=== PATIENT | male | born 1995 | race Caucasian/White ===

== ENCOUNTER 2017-02-04 12:35 | Inpatient (IN) | payer OTHER ==
[2017-02-04] MEDS ORDERED: SODIUM CHLOR 0.9% 1000 ML INJ 1,000 ML IV SCH (12:56)
[2017-02-04 12:57] VITALS: TEMP 98.2; O2SAT 100
[2017-02-04] MEDS ORDERED: HYDROmorphone HCL PF 2 MG/ML VIAL IV PUSH ONE ×2 (13:00→16:30)
[2017-02-04] MEDS ORDERED: SODIUM CHLORIDE 0.9% FLUSH 10 ML FLUSH IVF PRN (13:00)
[2017-02-04] MEDS ORDERED: ONDANSETRON HCL 4 MG/2 ML VIAL IV PUSH ONE (13:00)
[2017-02-04 13:04] VITALS: BP 160/82; PULSE 90; RESP 18; TEMP 98.6; O2SAT 100
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
[2017-02-04 14:42] LABS: AUTOMATED NEUTROPHIL # 18.4 TH/MM3 (1.8-7.7); EOSINOPHIL % 0.1 % (0.0-4.0); HEMATOCRIT 48.2 % (39.0-51.0); HEMOGLOBIN 16.6 GM/DL (13.0-17.0); LYMPH % 5.1 % (9.0-44.0); LYMPHOCYTE # 1.1 TH/MM3 (1.0-4.8); MEAN CELL VOLUME 89.3 FL (80.0-100.0); MEAN CORPUSCULAR HEMOGLOBIN 30.7 PG (27.0-34.0); MEAN CORPUSCULAR HGB CONC 34.4 % (32.0-36.0); MEAN PLATELET VOLUME 9.6 FL (7.0-11.0); MONO % 7.8 % (0.0-8.0); MONOCYTE # 1.7 TH/MM3 (0-0.9); PLATELET COUNT 192 TH/MM3 (150-450); RED CELL DISTRIBUTION WIDTH 12.4 % (11.6-17.2); WHITE BLOOD COUNT 21.2 TH/MM3 (4.0-11.0)
[2017-02-04 14:49] LABS: INTERNATIONAL NORMALIZED RATIO 1.1 RATIO; PROTHROMBIN TIME - PATIENT 11.7 SEC (9.8-11.6)
[2017-02-04 14:52] VITALS: O2SAT 100
[2017-02-04 14:58] LABS: BICARBONATE 24.7 MEQ/L (21.0-32.0); CALCIUM 8.5 MG/DL (8.5-10.1); CREATININE 1.05 MG/DL (0.60-1.30)
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
[2017-02-04 17:17] VITALS: BP 160/88
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
[2017-02-04] MEDS ORDERED: IBUP-232 PO (17:19)
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
[2017-02-04] MEDS ORDERED: ACETAMINOPHEN/HYDROcodone 325 MG/5 MG TAB PO PRN (19:15)
[2017-02-04] MEDS ORDERED: ENALAPRILAT 1.25 MG/ML VIAL IV PUSH PRN (19:15)
[2017-02-04] MEDS ORDERED: PANTOPRAZOLE SODIUM 40 MG VIAL IVP SCH (19:15)
[2017-02-04] MEDS ORDERED: MAGNESIUM HYDROXIDE SUSP 30 ML CUP PO PRN (19:15)
[2017-02-04 19:17] VITALS: BP 141/92; PULSE 81; RESP 22; O2SAT 99
[2017-02-04 19:55] LABS: BILIRUBIN, URINE NEG (NEG); BLOOD, URINE NEG (NEG); GLUCOSE,URINE NEG (NEG); KETONE, URINE NEG (NEG); MUCUS URINE FEW /lpf (OCC); NITRITE,URINE NEG (NEG); PH, URINE 7.5 (5.0-8.5); SQUAMOUS EPITHELIAL CELL URINE <1 /hpf (0-5); URINE COLOR YELLOW (YELLW/STRAW); URINE LEUKOCYTE ESTERASE NEG (NEG)
[2017-02-04 21:24] VITALS: BP 161/83; PULSE 75; RESP 18; TEMP 98.7; O2SAT 99
[2017-02-04] MEDS: DOCUSATE SODIUM 100 MG CAP PO SCH (21:45)
[2017-02-04] MEDS: ACETAMINOPHEN/HYDROcodone 325 MG/5 MG TAB PO PRN (21:45)
[2017-02-05 00:22] VITALS: BP 109/68; PULSE 64; RESP 17; TEMP 97.8; O2SAT 99
[2017-02-05 04:00] VITALS: BP 126/71; PULSE 75; RESP 18; TEMP 97.9; O2SAT 99
[2017-02-05] MEDS: ACETAMINOPHEN/HYDROcodone 325 MG/5 MG TAB PO PRN ×2 (05:43→10:27)
[2017-02-05] MEDS: ONDANSETRON HCL 4 MG/2 ML VIAL IV PUSH PRN ×2 (05:50→12:34)
[2017-02-05] MEDS ORDERED: XARE10TA PO (06:47)
[2017-02-05] MEDS ORDERED: HYDR-3580 PO (06:47)
[2017-02-05] MEDS ORDERED: CALCTAB19 PO (06:47)
[2017-02-05] MEDS ORDERED: WALKER WHEELS/F1 MIS (06:47)
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
[2017-02-05 08:00] VITALS: BP 127/66; PULSE 75; RESP 16; TEMP 97.8; O2SAT 100
[2017-02-05] MEDS: FAMOTIDINE 20 MG TAB PO SCH ×2 (09:12→20:41)
[2017-02-05] MEDS: DOCUSATE SODIUM 100 MG CAP PO SCH ×2 (09:12→20:41)
[2017-02-05 10:31] LABS: AUTOMATED NEUTROPHIL # 7.5 TH/MM3 (1.8-7.7); BASOPHIL % 0.3 % (0.0-2.0); EOSINOPHIL # 0.1 TH/MM3 (0-0.4); EOSINOPHIL % 0.7 % (0.0-4.0); HEMATOCRIT 44.6 % (39.0-51.0); HEMOGLOBIN 15.5 GM/DL (13.0-17.0); LYMPH % 18.7 % (9.0-44.0); MEAN CORPUSCULAR HEMOGLOBIN 30.9 PG (27.0-34.0); MEAN CORPUSCULAR HGB CONC 34.7 % (32.0-36.0); MEAN PLATELET VOLUME 9.6 FL (7.0-11.0); MONO % 10.2 % (0.0-8.0); MONOCYTE # 1.1 TH/MM3 (0-0.9); NEUT % 70.1 % (16.0-70.0); PLATELET COUNT 167 TH/MM3 (150-450); RED BLOOD COUNT 5.01 MIL/MM3 (4.50-5.90); RED CELL DISTRIBUTION WIDTH 12.5 % (11.6-17.2); WHITE BLOOD COUNT 10.7 TH/MM3 (4.0-11.0)
[2017-02-05 10:53] LABS: ALKALINE PHOSPHATASE 64 U/L (45-117); TOTAL BILIRUBIN ADULT 0.9 MG/DL (0.2-1.0); TOTAL PROTEIN 6.4 GM/DL (6.4-8.2)
[2017-02-05 11:09] LABS: ALBUMIN 3.6 GM/DL (3.4-5.0); ALT (GPT) 28 U/L (12-78); AST (GOT) 31 U/L (15-37); BICARBONATE 27.6 MEQ/L (21.0-32.0); BLOOD UREA NITROGEN 12 MG/DL (7-18); CALCIUM 8.4 MG/DL (8.5-10.1); CHLORIDE 106 MEQ/L (98-107); CREATININE 0.91 MG/DL (0.60-1.30); GLOMERULAR FILTRATION RATE 103 ML/MIN (>89); GLUCOSE,RANDOM 109 MG/DL (74-106); SODIUM (NA) 140 MEQ/L (136-145)
[2017-02-05] MEDS: MORPHINE SULFATE 4 MG/ML INJ IV PUSH PRN ×2 (11:42→16:12)
--- NOTE | 2017-02-05 11:46 | HHI.PR ---
Objective Vitals/I&O Vital Signs Date Time Temp Pulse Resp B/P (MAP) Pulse Ox O2 Delivery O2 Flow Rate FiO2 02/05/17 08:00 97.8 75 16 127/66 (86) 100 02/04/17 19:17 Room Air 02/04/17 14:52 2.00 Labs Laboratory Tests Test 02/04/17 14:10 02/04/17 19:20 02/05/17 10:00 02/05/17 10:07 White Blood Count 21.2 10.7 Red Blood Count 5.40 5.01 Hemoglobin 16.6 15.5 Hematocrit 48.2 44.6 Mean Corpuscular Volume 89.3 89.0 Mean Corpuscular Hemoglobin 30.7 30.9 Mean Corpuscular Hemoglobin Concent 34.4 34.7 Red Cell Distribution Width 12.4 12.5 Platelet Count 192 167 Mean Platelet Volume 9.6 9.6 Neutrophils (%) (Auto) 87.0 70.1 Lymphocytes (%) (Auto) 5.1 18.7 Monocytes (%) (Auto) 7.8 10.2 Eosinophils (%) (Auto) 0.1 0.7 Basophils (%) (Auto) 0.0 0.3 Neutrophils # (Auto) 18.4 7.5 Lymphocytes # (Auto) 1.1 2.0 Monocytes # (Auto) 1.7 1.1 Eosinophils # (Auto) 0.0 0.1 Basophils # (Auto) 0.0 0.0 CBC Comment DIFF FINAL DIFF FINAL Differential Comment Prothrombin Time 11.7 Prothromb Time International Ratio 1.1 Activated Partial Thromboplast Time 23.4 Blood Urea Nitrogen 17 12 Creatinine 1.05 0.91 Random Glucose 98 109 Calcium Level 8.5 8.4 Sodium Level 141 140 Potassium Level 3.2 4.0 Chloride Level 109 106 Carbon Dioxide Level 24.7 27.6 Anion Gap 7 6 Estimat Glomerular Filtration Rate 88 103 Urine Color YELLOW Urine Turbidity CLEAR Urine pH 7.5 Urine Specific [place] 1.018 Urine Protein NEG Urine Glucose (UA) NEG Urine Ketones NEG Urine Occult Blood NEG Urine Nitrite NEG Urine Bilirubin NEG Urine Urobilinogen LESS THAN 2.0 Urine Leukocyte Esterase NEG Urine RBC 1 Urine WBC 1 Urine Squamous Epithelial Cells <1 Urine Mucus FEW Microscopic Urinalysis Comment CULT NOT INDICATED Total Protein 6.4 Albumin 3.6 Alkaline Phosphatase 64 Aspartate Amino Transf (AST/SGOT) 31 Alanine Aminotransferase (ALT/SGPT) 28 Total Bilirubin 0.9 Marissa Perez Feb 05, 2017 11:46
[2017-02-05 12:00] VITALS: BP 129/75; PULSE 70; RESP 16; TEMP 98.8; O2SAT 98
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
[2017-02-05] MEDS ORDERED: MAGN400S PO (13:51)
[2017-02-05] MEDS ORDERED: DOCU1CAP39 PO (13:51)
[2017-02-05] MEDS: ACETAMINOPHEN 1000 MG/100 ML 100 ML IV SCH ×3 (14:00→20:42)
[2017-02-05 16:00] VITALS: BP 134/69; PULSE 70; RESP 16; TEMP 98.5; O2SAT 100
[2017-02-05] MEDS: KETOROLAC TROMETHAMINE 30 MG/ML (IVP) VIAL IV PUSH SCH ×2 (16:12→18:07)
[2017-02-05] MEDS: MAGNESIUM HYDROXIDE SUSP 30 ML CUP PO SCH ×2 (16:13→20:42)
[2017-02-05] MEDS: LIDOCAINE HCL 5% PATCH T-DERMAL SCH (16:14)
[2017-02-05 20:00] VITALS: BP 148/80; PULSE 69; RESP 18; TEMP 98.2; O2SAT 100
--- NOTE | 2017-02-05 20:00 | OTSOAPIP ---
ATTEMPTED BUT TOO PAINFUL AT THIS TIME. WILL REATTEMPT NEXT TREATMENT DATE. 2855 JT Therapist: Radha Davis OTR/L Signature on file
--- NOTE | 2017-02-05 20:00 | OTSOAPIP ---
ATTEMPTED BUT TOO PAINFUL AT THIS TIME. WILL REATTEMPT NEXT TREATMENT DATE. 7822 JT Therapist: Radha Davis OTR/L Signature on file
--- NOTE | 2017-02-05 20:00 | OTSOAPIP ---
ATTEMPTED BUT TOO PAINFUL AT THIS TIME. WILL REATTEMPT NEXT TREATMENT DATE. 6290 JT Therapist: Radha Davis OTR/L Signature on file
[2017-02-06 00:18] VITALS: BP 142/69; PULSE 73; RESP 18; TEMP 98.3; O2SAT 99
[2017-02-06] MEDS: KETOROLAC TROMETHAMINE 30 MG/ML (IVP) VIAL IV PUSH SCH ×4 (00:25→18:00)
[2017-02-06] MEDS: ACETAMINOPHEN 1000 MG/100 ML 100 ML IV SCH ×3 (02:00→13:00)
--- NOTE | 2017-02-06 06:59 | HHI.FF ---
Face to Face Verification Diagnosis: (1) Trauma (2) Pelvic fracture Physical Therapy Order: Evaluate and Treat, Improve ambulation, Strength and gait training Home Health Nursing Order: Medical education Signs/symptoms of disease process Medication education-adverse effect Nursing assessment with vital signs I have seen patient Darin Trinidad on 02/06/17. My clinical findings support the need for the requested home health care services because: Ltd mobility - disease progression Deconditioned w/ increased weakness Limited ability to care for self High risk of falls I certify that my clinical findings support that this patient is homebound because: Post-op weakness Unsteady gait/balance [id number] bed/chair Marissa Perez Feb 06, 2017 06:59
[2017-02-06 07:31] VITALS: BP 117/63; PULSE 73; RESP 18; TEMP 96.9; O2SAT 97
[2017-02-06] MEDS: ONDANSETRON HCL 4 MG/2 ML VIAL IV PUSH PRN (07:57)
[2017-02-06] MEDS: ENOXAPARIN SODIUM 30 MG/0.3 ML SYRINGE SQ SCH ×3 (08:01→22:31)
[2017-02-06] MEDS: DOCUSATE SODIUM 100 MG CAP PO SCH ×2 (09:00→22:30)
[2017-02-06] MEDS: LACTULOSE SYRUP 20 GM/30 ML CUP PO SCH (09:00)
[2017-02-06] MEDS: FAMOTIDINE 20 MG TAB PO SCH ×2 (09:00→22:31)
[2017-02-06] MEDS: BACITRACIN TOP OINT 15 GM TUBE TOPICAL SCH ×2 (10:15→22:33)
[2017-02-06] MEDS: MORPHINE SULFATE 4 MG/ML INJ IV PUSH PRN (10:50)
[2017-02-06] MEDS: LIDOCAINE HCL 5% PATCH T-DERMAL SCH (10:50)
[2017-02-06 11:45] VITALS: BP 169/86; PULSE 96; RESP 18; TEMP 98.1; O2SAT 99
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
[2017-02-06] MEDS ORDERED: METOCLOPRAMIDE HCL 10 MG/2 ML VIAL IV PUSH PRN (13:00)
[2017-02-06 16:00] VITALS: BP 128/72; PULSE 80; RESP 18; TEMP 98.1; O2SAT 98
[2017-02-06 20:35] VITALS: BP 158/78; PULSE 78; RESP 18; TEMP 98.9; O2SAT 98
[2017-02-06] MEDS ORDERED: ZOLPIDEM TARTRATE 10 MG TAB PO PRN (21:00)
[2017-02-06] MEDS: MAGNESIUM HYDROXIDE SUSP 30 ML CUP PO SCH (22:31)
[2017-02-06] MEDS: SODIUM CHLORIDE 0.9% FLUSH 10 ML FLUSH IV FLUSH PRN (22:31)
[2017-02-06] MEDS ORDERED: ACETAMINOPHEN 1000 MG/100 ML 100 ML IV SCH (23:00)
[2017-02-07] MEDS: KETOROLAC TROMETHAMINE 30 MG/ML (IVP) VIAL IV PUSH SCH ×3 (00:42→12:00)
[2017-02-07 01:11] VITALS: BP 158/73; PULSE 87; RESP 18; TEMP 98.8; O2SAT 99
[2017-02-07] MEDS: ENOXAPARIN SODIUM 30 MG/0.3 ML SYRINGE SQ SCH (07:54)
[2017-02-07 08:00] VITALS: BP 142/76; PULSE 91; RESP 18; TEMP 98.3; O2SAT 99
[2017-02-07] MEDS ORDERED: BISACODYL EC 5 MG TABEC PO ONE (08:00)
[2017-02-07] MEDS ORDERED: BISACODYL 10 MG SUPP RECTAL ONE (08:00)
[2017-02-07] MEDS: FAMOTIDINE 20 MG TAB PO SCH (08:36)
[2017-02-07] MEDS: DOCUSATE SODIUM 100 MG CAP PO SCH (08:36)
[2017-02-07] MEDS: SODIUM CHLORIDE 0.9% FLUSH 10 ML FLUSH IV FLUSH PRN (08:36)
[2017-02-07] MEDS: BACITRACIN TOP OINT 15 GM TUBE TOPICAL SCH (08:40)
[2017-02-07] MEDS: LIDOCAINE HCL 5% PATCH T-DERMAL SCH (08:40)
[2017-02-07] MEDS: LACTULOSE SYRUP 20 GM/30 ML CUP PO SCH (08:46)
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
[2017-02-07] MEDS ORDERED: LORazepam 2 MG/ML VIAL IV PUSH ONE (10:30)
[2017-02-07] MEDS ORDERED: MAGN400S PO (12:16)
[2017-02-07] MEDS ORDERED: LIDO5DIS5 T-DERMAL (12:16)
[2017-02-07] MEDS ORDERED: ZOFR4TAB PO (12:16)
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
[2017-02-07] MEDS ORDERED: WALKER WHEELS/F1 MIS (12:45)
== END 2017-02-07 15:16 | disposition home health service (06) | DRG 536 ==
LOC: NEPC 12:35 → NEDA 16:27 → N06B 19:35
PROVIDERS: ADMIT Surgery; ATTEND Surgery
DX: S32.810A Multiple fractures of pelvis with stable disruption of pelvic ring, initial encounter for closed fracture (principal); K92.0 Hematemesis; S40.012A Contusion of left shoulder, initial encounter; S60.221A Contusion of right hand, initial encounter; M54.2 Cervicalgia; S32.402A Unspecified fracture of left acetabulum, initial encounter for closed fracture; S32.401A Unspecified fracture of right acetabulum, initial encounter for closed fracture; Z87.820 Personal history of traumatic brain injury; V29.9XXA Motorcycle rider (driver) (passenger) injured in unspecified traffic accident, initial encounter
CPT/HCPCS: 70450; 71010; 71250; 72125; 72131; 73030; 73090; 73130; 74176; 80048; 80053; 81001; 85025; 85610; 85730; 86850; 86900; 86901; 86920; 94150; 96361; 96374; 96375; C9113; J0131; J1170; J1650; J1885; J2270; J2405; J2765; J7030